=== PATIENT | female | born 1960 | race Caucasian/White ===

== ENCOUNTER 2019-11-01 05:53 | Day surgery (SDC) | payer MEDICAID ==
[2019-10-26 14:30] LABS: BASOPHILS % (AUTO) 0.7 % (0-1); EOSINOPHILS # (AUTO) 0.1 X10'3 (0-0.9); EOSINOPHILS % (AUTO) 2.2 % (0-6); LYMPHOCYTES # (AUTO) 2.6 X10'3 (1.1-4.8); LYMPHOCYTES % (AUTO) 41.6 % (21-51); MEAN CORPUSCULAR HGB CONC 33.4 g/dL (33.0-36.5); MEAN CORPUSCULAR VOLUME 89.8 FL (78-98); MEAN PLATELET VOLUME 8.5 FL (7.4-10.4); MONOCYTES # (AUTO) 0.7 X10'3 (0-0.9); MONOCYTES % (AUTO) 11.3 % (2-12); NEUTROPHILS # (AUTO) 2.7 X10'3 (1.8-7.7); NEUTROPHILS % (AUTO) 44.2 % (42-75); PRE OP HEMATOCRIT 42.5 % (35.0-45.0); PRE OP HEMOGLOBIN 14.2 g/dL (12.0-16.0); PRE OP PLATELET COUNT 300 X10'3 (140-440); RED BLOOD COUNT 4.74 X10'6 (4.20-5.60); RED CELL DISTRIBUTION WIDTH 13.3 % (11.5-14.5)
[2019-10-26 14:44] LABS: ALBUMIN 4.3 G/DL (3.4-5.0); ALBUMIN/GLOBULIN RATIO 1.1 (1.1-1.5); ALKALINE PHOSPHATASE 97 IU/L (46-116); BLOOD UREA NITROGEN 20 MG/DL (7-18); BUN/CREATININE RATIO 28.2 (6.6-38.0); CALCIUM 9.8 MG/DL (8.5-10.1); CHLORIDE 103 MMOL/L (99-107); CREATININE 0.71 MG/DL (0.40-0.90); PRE OP ALT 34 U/L (30-65); PRE OP ANION GAP 9 (8-16); PRE OP AST 31 U/L (10-37); PRE OP BILIRUB, TOTAL 0.4 MG/DL (0.0-1.0); PRE OP GLUCOSE 79 MG/DL (70-104); PRE OP POTASSIUM 3.9 MMOL/L (3.4-5.1); PRE OP SODIUM 139 MMOL/L (135-145); TOTAL CARBON DIOXIDE 27.5 MMOL/L (24-32); TOTAL PROTEIN 8.2 G/DL (6.4-8.2); eGFR 85 ML/MIN
[2019-11-01] VITALS (10 sets, daily range): BP systolic 128–144; BP diastolic 72–82
[~2019-11-01] VITALS: Ht 167.6 cm; Wt 63.0 kg
[~2019-11-01 05:53] MED LIST: IBUP-1984 PO; MULT-1085 PO; cefazolin/dext.iso 2gm/50ml 50 ML IV ONE; famotidine 20mg tablet PO ONE; ringers solution, lacted 1,000 ML IV SCH
[2019-11-01] MEDS ORDERED: LIDOcaine 1% (10mg/ml) 2ml vial ONE (06:22)
[2019-11-01] MEDS ORDERED: cloNIDine hcl/PF 100mcg/ml inj ONE (07:04)
[2019-11-01] MEDS ORDERED: ROPIVAcaine 0.5% (5mg/ml) 30ml vial ONE (07:04)
[2019-11-01] MEDS ORDERED: midazolam 2 mg/2 ml injection ONE ×2 (07:08→07:09)
[2019-11-01] MEDS ORDERED: fentaNYL/PF 50MCG/1 ML 2ML syringe ONE (07:09)
[2019-11-01] MEDS ORDERED: propofol inj 20 ML IV ONE (07:10)
[2019-11-01] MEDS ORDERED: ringers solution, lacted 1,000 ML IV SCH (07:19)
[2019-11-01] MEDS ORDERED: ondansetron/PF 4mg/2ml inj IV PRN (07:20)
[2019-11-01] MEDS ORDERED: proCHLORperazine 10 MG/2 ml inj IV PRN (07:20)
[2019-11-01] MEDS ORDERED: morphine 2 MG/ML inj. syringe IV PRN (07:20)
[2019-11-01] MEDS ORDERED: morphine 4 MG/ML inj SYRINge IV PRN (07:20)
[2019-11-01] MEDS ORDERED: meperidine/PF 25mg/ml syringe IV PRN ×3 (07:20)
[2019-11-01] MEDS ORDERED: sevoflurane 250ml liquid IH ONE (07:42)
[2019-11-01] MEDS ORDERED: ePHEDrine 50MG/ML INJ. ONE (09:33)
[2019-11-01] MEDS ORDERED: dexamethasone sod phosphate 4mg/ml inj. ONE (09:33)
[2019-11-01] MEDS ORDERED: rocuronium 10mg/ml inj IV ONE (09:33)
[2019-11-01] MEDS ORDERED: ondansetron/PF 4mg/2ml inj ONE (10:19)
--- NOTE | 2019-11-01 10:35 | NUR ---
Received from OR via [facility], accompanied by Anesthesiologist DR ARRIAGA and report given by Anesthesiologist. PT DROWSY, NO S/S OF DISTRESS/DISCOMFORT, RIGHT SHOULDER W/ISLAND JEN CDI, RIGHT ARM IN IMMOBILIZER. Addendum: 11/01/19 at 1046 by Devika Murphy RN Amended: Links added.
--- NOTE | 2019-11-01 12:15 | NUR ---
D/C INSTRUCTIONS GIVEN AND GONE OVER W/PT WHO VERBALIZED UNDERSTANDING, PT D'CD TO HOME VIA W/C TO PRIVATE VEHICLE W/O INCIDENT. Addendum: 11/01/19 at 1225 by Devika Murphy RN Amended: Links added.
== END 2019-11-01 12:15 | disposition home or self-care (01) ==
LOC: PAS 05:53
PROVIDERS: ATTEND Orthopaedic Surgery
DX: S46.011A Strain of muscle(s) and tendon(s) of the rotator cuff of right shoulder, initial encounter (principal); M65.811 Other synovitis and tenosynovitis, right shoulder; G89.18 Other acute postprocedural pain; Z98.890 Other specified postprocedural states; Z90.11 Acquired absence of right breast and nipple; F17.290 Nicotine dependence, other tobacco product, uncomplicated; Z79.899 Other long term (current) drug therapy; X58.XXXA Exposure to other specified factors, initial encounter; Y93.89 Activity, other specified; Y92.89 Other specified places as the place of occurrence of the external cause; Y99.8 Other external cause status; Z11.59 Encounter for screening for other viral diseases
CPT/HCPCS: 23412; 23430; 36415; 64415; 80053; 82948; 85025; 87635; 93005; C1713; J0735; J1100; J2001; J2250; J2405; J2704; J3010; J7120; A4215; A4565; A4618; A6449; A7000; J2795